=== PATIENT | male | born 1990 | race African-American/Black ===

== ENCOUNTER 2018-06-08 14:53 | Inpatient (IN) | payer MEDICAID ==
[~2018-06-08] VITALS: Ht 188 cm; Wt 81.6 kg
[2018-06-08 14:58] VITALS: BP 127/82
[2018-06-08] MEDS ORDERED: D5W IV ONE ×6 (15:00→21:15)
[2018-06-08] MEDS ORDERED: ACETADOTE IV ONE ×6 (15:00→21:15)
[2018-06-08] MEDS ORDERED: BUPROPION XL300 MG ORAL (15:14)
[2018-06-08] MEDS ORDERED: SEROQUEL200 MG ORAL (15:14)
--- NOTE | 2018-06-08 15:14 | Emergency Room Report ---
History of Present Illness General Chief Complaint: Behavioral Complaint Source: Patient Present Illness HPI Patient presents emergency department today complaining of abdominal pain. Patient has a history of depression. Patient does not take medications. Patient in the past has taken medications but for some reason stopped taking them. Patient was feeling depressed and wanted to kill himself. He took about 60 tablets of Tylenol Extra Strength at midnight last night. He states that he had one episode of vomiting. He came here complaining of abdominal pain he denies any fever chest pain shortness of breath. No other complaints are noted. Symptoms noted to be severe.No other modifying factors. No other associated signs and symptoms. No other complaints were noted. Allergies: Coded Allergies: No Known Allergies (Unverified , 06/08/18) Patient History Past Medical History: other - Depression, schizophrenia Past Surgical History: none Pertinent Family History: none Social History: Denies: smoking, alcohol use, drug use Reviewed Nursing Documentation: PMH: Agreed; PSxH: Agreed Nursing Documentation-PMH Past Medical History: No History, Except For History Of Psychiatric Problem: Yes - shizophrenia, depression Review of Systems All Other Systems: negative except mentioned in HPI Physical Exam Vital Signs Date Time Temp Pulse Resp B/P (MAP) Pulse Ox O2 Delivery O2 Flow Rate FiO2 06/08/18 14:48 98.2 90 18 127/82 100 Room Air 98.2 Sp02 EP Interpretation: reviewed, normal General Appearance: alert, mild distress Head: atraumatic Eyes: bilateral eye normal inspection ENT: normal ENT inspection, hearing grossly normal, normal voice Neck: normal inspection, full range of motion, supple, no bony tend Respiratory: normal inspection, lungs clear, normal breath sounds, no respiratory distress, no retraction, no wheezing Cardiovascular #1: regular rate, rhythm, no edema Gastrointestinal: normal inspection, normal bowel sounds, soft, no guarding, no hernia, tenderness - Diffusely Genitourinary: no CVA tenderness Musculoskeletal: normal inspection, back normal, normal range of motion Neurologic: normal inspection, alert, responsive, speech normal Psychiatric: depressed affect, anxious, other - Suicidal ideation Skin: normal inspection, normal color, no rash Medical Decision Making EKG Diagnostic Results Rate: normal Rhythm: NSR ST Segments: no acute changes Rhythm Strip Diag. Results EP Interpretation: yes Rate: 73 Rhythm: NSR, no PVC's, no ectopy Last Vital Signs Date Time Temp Pulse Resp B/P (MAP) Pulse Ox O2 Delivery O2 Flow Rate FiO2 06/08/18 14:48 98.2 90 18 127/82 100 Room Air 98.2 Tim Jung MD Jun 08, 2018 15:14
[2018-06-08 15:52] LABS: EOSINOPHILS % (AUTO) 4.1 % (0.0-3.0); HEMATOCRIT 43.9 % (42.0-52.0); HEMOGLOBIN 15.5 G/DL (14.2-18.0); LYMPHOCYTES % (AUTO) 37.5 % (20.0-45.0); MEAN CORPUSCULAR VOLUME 81 FL (80-99); MONOCYTES % (AUTO) 9.1 % (1.0-10.0); NEUTROPHILS % (AUTO) 46.4 % (45.0-75.0); PLATELET COUNT 300 K/UL (150-450); RED CELL DISTRIBUTION WIDTH 11.6 % (11.6-14.8); WHITE BLOOD COUNT 4.6 K/UL (4.8-10.8)
[2018-06-08 15:56] LABS: ANION GAP 6 mmol/L (5-15); BLOOD UREA NITROGEN 16 mg/dL (7-18); CALCIUM 9.2 MG/DL (8.5-10.1); CARBON DIOXIDE 30 MMOL/L (21-32); CHLORIDE 103 MMOL/L (98-107); CREATININE 1.3 MG/DL (0.55-1.30); POTASSIUM 3.6 MMOL/L (3.5-5.1); SODIUM 138 MMOL/L (136-145)
[2018-06-08 16:06] LABS: ALANINE AMINOTRANSFERASE 88 U/L (12-78); ALBUMIN 4.3 G/DL (3.4-5.0); ALBUMIN/GLOBULIN RATIO 1.3 (1.0-2.7); ALKALINE PHOSPHATASE 53 U/L (46-116); ASPARTATE AMINO TRANSFERASE 394 U/L (15-37)
[2018-06-08 17:00] VITALS: BP 132/80
[2018-06-08 17:02] LABS: INR 1.1 (0.9-1.1)
[2018-06-08 18:30] VITALS: BP 140/87
[2018-06-08 18:44] VITALS: BP 164/89
[2018-06-08] MEDS: D5 1/2NS 1,000 ML IV SCH (19:49)
[2018-06-08 20:00] VITALS: BP 135/90
[2018-06-08] MEDS ORDERED: LORazepam Inj 2mg/ml 1ml IV PRN (20:00)
[2018-06-08] MEDS ORDERED: Morphine Sulfate 2mg/ml Inj IVP PRN (20:00)
[2018-06-08] MEDS: Heparin 5000 units/ml inj SUBQ SCH (21:53)
[2018-06-09 00:50] VITALS: BP 135/90
[2018-06-09 04:00] VITALS: BP 133/88
[2018-06-09 07:34] LABS: BASOPHILS % (AUTO) 0.6 % (0.0-2.0); EOSINOPHILS % (AUTO) 0.2 % (0.0-3.0); HEMATOCRIT 29.7 % (42.0-52.0); HEMOGLOBIN 10.1 G/DL (14.2-18.0); LYMPHOCYTES % (AUTO) 19.7 % (20.0-45.0); MEAN CORPUSCULAR VOLUME 99 FL (80-99); NEUTROPHILS % (AUTO) 73.6 % (45.0-75.0); PLATELET COUNT 190 K/UL (150-450); RED BLOOD COUNT 2.99 M/UL (4.70-6.10); RED CELL DISTRIBUTION WIDTH 15.9 % (11.6-14.8); WHITE BLOOD COUNT 3.8 K/UL (4.8-10.8)
[2018-06-09 08:00] VITALS: BP 141/88
[2018-06-09 08:23] LABS: ALANINE AMINOTRANSFERASE 187 U/L (12-78); ALBUMIN 1.7 G/DL (3.4-5.0); ALBUMIN/GLOBULIN RATIO 0.6 (1.0-2.7); ALKALINE PHOSPHATASE 230 U/L (46-116); ANION GAP 9 mmol/L (5-15); ASPARTATE AMINO TRANSFERASE 46 U/L (15-37); BILIRUBIN,TOTAL 0.4 MG/DL (0.2-1.0); BLOOD UREA NITROGEN 24 mg/dL (7-18); CALCIUM 7.2 MG/DL (8.5-10.1); CARBON DIOXIDE 27 MMOL/L (21-32); CHLORIDE 112 MMOL/L (98-107); CREATININE 0.5 MG/DL (0.55-1.30); POTASSIUM 3.7 MMOL/L (3.5-5.1); SODIUM 148 MMOL/L (136-145)
[2018-06-09] MEDS: Heparin 5000 units/ml inj SUBQ SCH ×2 (08:48→20:34)
--- NOTE | 2018-06-09 10:34 | Consultation ---
History of Present Illness General Date patient seen: Jun 09, 2018 Chief Complaint: Behavioral Complaint Present Illness HPI 28 year old male with hx of schizoaffective disorder, depression presented to ER with CC of abdominal pain suicidal ideation. Patient was feeling depressed and wanted to kill himself. He took about 60 tablets of Tylenol Extra Strength at midnight last. He states that he had one episode of vomiting. He came here complaining of abdominal pain he denies any fever chest pain shortness of breath. No other complaints are noted. Poison control was contacted and IV Mucomyst was started in ER and pt was transferred to [facility] for further treatment. Allergies: Coded Allergies: No Known Allergies (Unverified , 06/08/18) Medication History Scheduled Bupropion Hcl* (Wellbutrin*), 150 MG ORAL DAILY, (Reported) Quetiapine Fumarate* (Seroquel*), 400 MG ORAL DAILY, (Reported) Patient History Healthcare decision maker Resuscitation status Full Code Advanced Directive on File Past Medical/Surgical History Past Medical/Surgical History: (1) Depression (2) Schizoaffective disorder Review of Systems All Other Systems: negative except mentioned in HPI Physical Exam General Appearance: WD/WN, no apparent distress Lines, tubes and drains: peripheral HEENT: normocephalic, atraumatic Neck: non-tender, normal alignment Respiratory/Chest: chest wall non-tender, lungs clear Breasts: no masses Cardiovascular/Chest: normal peripheral pulses Abdomen: normal bowel sounds, non tender Genitourinary/Rectal: normal genital exam Extremities: normal range of motion Last 24 Hour Vital Signs Date Time Temp Pulse Resp B/P (MAP) Pulse Ox O2 Delivery O2 Flow Rate FiO2 06/09/18 08:30 64 06/09/18 08:00 97.7 62 18 141/88 (105) 100 97.7 06/09/18 04:00 Room Air 06/09/18 04:00 97.7 64 18 133/88 (103) 99 97.7 06/09/18 04:00 64 06/09/18 00:50 97.5 63 20 135/90 (105) 97 97.5 06/09/18 00:00 Room Air 06/09/18 00:00 65 06/08/18 20:00 65 06/08/18 20:00 Room Air 06/08/18 20:00 97.5 63 20 135/90 (105) 97 97.5 06/08/18 18:53 98.0 89 15 140/87 100 Room Air 98.0 06/08/18 18:44 Room Air 06/08/18 18:44 98.8 63 20 164/89 (114) 97 98.8 06/08/18 18:30 98.0 89 15 140/87 100 Room Air 98.0 06/08/18 17:00 98.7 88 20 132/80 100 Room Air 98.7 06/08/18 14:58 98.2 18 127/82 100 Room Air 98.2 06/08/18 14:48 98.2 90 18 127/82 100 Room Air 98.2 Intake and Output 06/08/18 06/09/18 19:00 07:00 Intake Total 549.25 ml Balance 549.25 ml Intake IV Total 549.25 ml # Voids 1 1 Laboratory Tests Test 06/08/18 15:15 06/08/18 18:10 06/09/18 06:35 White Blood Count 4.6 K/UL (4.8-10.8) L 3.8 K/UL (4.8-10.8) L Red Blood Count 5.40 M/UL (4.70-6.10) 2.99 M/UL (4.70-6.10) L Hemoglobin 15.5 G/DL (14.2-18.0) 10.1 G/DL (14.2-18.0) #L Hematocrit 43.9 % (42.0-52.0) 29.7 % (42.0-52.0) #L Mean Corpuscular Volume 81 FL (80-99) 99 FL (80-99) # Mean Corpuscular Hemoglobin 28.6 PG (27.0-31.0) 33.7 PG (27.0-31.0) H Mean Corpuscular Hemoglobin Concent 35.2 G/DL (32.0-36.0) 33.9 G/DL (32.0-36.0) Red Cell Distribution Width 11.6 % (11.6-14.8) 15.9 % (11.6-14.8) H Platelet Count 300 K/UL (150-450) 190 K/UL (150-450) Mean Platelet Volume 5.7 FL (6.5-10.1) L 8.6 FL (6.5-10.1) Neutrophils (%) (Auto) 46.4 % (45.0-75.0) 73.6 % (45.0-75.0) Lymphocytes (%) (Auto) 37.5 % (20.0-45.0) 19.7 % (20.0-45.0) L Monocytes (%) (Auto) 9.1 % (1.0-10.0) 6.0 % (1.0-10.0) Eosinophils (%) (Auto) 4.1 % (0.0-3.0) H 0.2 % (0.0-3.0) Basophils (%) (Auto) 3.0 % (0.0-2.0) H 0.6 % (0.0-2.0) Prothrombin Time 11.9 SEC (9.30-11.50) H Prothromb Time International Ratio 1.1 (0.9-1.1) Activated Partial Thromboplast Time 30 SEC (23-33) Sodium Level 138 MMOL/L (136-145) 148 MMOL/L (136-145) #H Potassium Level 3.6 MMOL/L (3.5-5.1) 3.7 MMOL/L (3.5-5.1) Chloride Level 103 MMOL/L (98-107) 112 MMOL/L (98-107) H Carbon Dioxide Level 30 MMOL/L (21-32) 27 MMOL/L (21-32) Anion Gap 6 mmol/L (5-15) 9 mmol/L (5-15) Blood Urea Nitrogen 16 mg/dL (7-18) 24 mg/dL (7-18) H Creatinine 1.3 MG/DL (0.55-1.30) 0.5 MG/DL (0.55-1.30) #L Estimat Glomerular Filtration Rate > 60 mL/min (>60) > 60 mL/min (>60) Glucose Level 92 MG/DL (74-106) 109 MG/DL (74-106) H Calcium Level 9.2 MG/DL (8.5-10.1) 7.2 MG/DL (8.5-10.1) #L Total Bilirubin 1.0 MG/DL (0.2-1.0) 0.4 MG/DL (0.2-1.0) Aspartate Amino Transf (AST/SGOT) 394 U/L (15-37) H 46 U/L (15-37) H Alanine Aminotransferase (ALT/SGPT) 88 U/L (12-78) H 187 U/L (12-78) H Alkaline Phosphatase 53 U/L (46-116) 230 U/L (46-116) H Total Protein 7.7 G/DL (6.4-8.2) 4.7 G/DL (6.4-8.2) #L Albumin 4.3 G/DL (3.4-5.0) 1.7 G/DL (3.4-5.0) L Globulin 3.4 g/dL 3.0 g/dL Albumin/Globulin Ratio 1.3 (1.0-2.7) 0.6 (1.0-2.7) L Salicylates Level 1.0 ug/mL (2.8-20) L Acetaminophen Level 33 MCG/ML (10-30) H Pending Serum Alcohol < 3 mg/dL Urine Opiates Screen Negative (NEGATIVE) Urine Barbiturates Screen Negative (NEGATIVE) Phencyclidine (PCP) Screen Negative (NEGATIVE) Urine Amphetamines Screen Positive (NEGATIVE) H Urine Benzodiazepines Screen Negative (NEGATIVE) Urine Cocaine Screen Positive (NEGATIVE) H Urine Marijuana (THC) Screen Positive (NEGATIVE) H Height (Feet): 6 Height (Inches): 2.00 Weight (Pounds): 180 Medications Current Medications Medications (Trade) Dose Ordered Sig/Pierre Route PRN Reason Start Time Stop Time Status Last Admin Dose Admin Acetylcysteine 8000 mg/Dextrose 1,040 ml @ 65 mls/hr ONCE ONCE IV 06/08/18 21:15 06/09/18 13:14 06/08/18 21:33 Dextrose (Dextrose 50%) 25 ml Q30M PRN IV Hypoglycemia 06/08/18 20:00 07/08/18 19:59 Dextrose (Dextrose 50%) 50 ml Q30M PRN IV Hypoglycemia 06/08/18 20:00 07/08/18 19:59 Dextrose/Sodium Chloride 1,000 ml @ 50 mls/hr Q20H IV 06/08/18 19:49 07/08/18 19:48 Heparin Sodium (Porcine) (Heparin 5000 units/ml) 5,000 units EVERY 12 HOURS SUBQ 06/08/18 21:00 07/08/18 20:59 06/09/18 08:48 Lorazepam (Ativan 2mg/ml 1ml) 0.5 mg Q4H PRN IV For Anxiety 06/08/18 20:00 06/15/18 19:59 Morphine Sulfate (Morphine Sulfate) 1 mg Q4H PRN IVP For Pain 06/08/18 20:00 06/15/18 19:59 Ondansetron HCl (Zofran) 4 mg Q6H PRN IVP Nausea & Vomiting 06/08/18 20:00 07/08/18 19:59 Assessment/Plan Problem List: (1) Overdose by acetaminophen ICD Codes: T39.1X1A - Poisoning by 4-Aminophenol derivatives, accidental ( unintentional), initial encounter SNOMED: 054902091 (2) Schizoaffective disorder ICD Codes: F25.9 - Schizoaffective disorder, unspecified SNOMED: 65452068 (3) Depression ICD Codes: F32.9 - Major depressive disorder, single episode, unspecified SNOMED: 89590665 Assessment/Plan iv fluids psych evaluation check Tylenol level this morning GI f/u dvt prophylaxis Cristel Capone MD Jun 09, 2018 10:34
--- NOTE | 2018-06-09 10:49 | GI Initial Consult Note ---
History of Present Illness General Date patient seen: Jun 09, 2018 Time patient seen: 10:39 Reason for Hospitalization: Behavioral Complaint Referring physician: DANA MURILLO Reason for Consultation: DRUG OVERDOSE Present Illness HPI Patient presents emergency department today complaining of abdominal pain. Patient has a history of depression. Patient does not take medications. Patient in the past has taken medications but for some reason stopped taking them. Patient was feeling depressed and wanted to kill himself. He took about 60 tablets of Tylenol Extra Strength at midnight last night. He states that he had one episode of vomiting. He came here complaining of abdominal pain he denies any fever chest pain shortness of breath. No other complaints are noted. Symptoms noted to be severe.No other modifying factors. No other associated signs and symptoms. No other complaints were noted. GI consulted for Tylenol overdose, possible acute liver damage. Pt seen, awake A&Ox4 NAD appears anxious with no active s/sx of N/V/D. Denies any abdominal pain. Labs reviewed; noted with hypernatremia, transaminitis, elevated acetaminophen levels. Utox positive for cocaine, marijuana and amphetamines. No history of endoscopy / colonoscopy. Home Meds Reported Medications Quetiapine Fumarate* (SEROQUEL*) 200 Mg Tablet, 400 MG ORAL DAILY, TAB 06/08/18 Bupropion Hcl* (WELLBUTRIN*) 300 Mg Tab.er.24h, 150 MG ORAL DAILY, #30 TAB 0 Refills 06/08/18 Med list reviewed/reconciled: Yes Allergies: Coded Allergies: No Known Allergies (Unverified , 06/08/18) Patient History History Provided By: Patient Past Medical History: none PMH Narrative Past Medical History: other - Depression, schizophrenia Past Surgical History: none Pertinent Family History: none Social History: Denies: smoking, alcohol use, drug use Reviewed Nursing Documentation: PMH: Agreed; PSxH: Agreed Nursing Documentation-PMH Past Medical History: No History, Except For History Of Psychiatric Problem: Yes - schizophrenia, depression Social History: Reports: drug use Review of Systems All Other Systems: negative except mentioned in HPI Physical Exam Vital Signs Date Time Temp Pulse Resp B/P (MAP) Pulse Ox O2 Delivery O2 Flow Rate FiO2 06/08/18 14:48 98.2 90 18 127/82 100 Room Air 98.2 Sp02 EP Interpretation: reviewed, normal Labs Laboratory Tests Test 06/08/18 15:15 06/08/18 18:10 06/09/18 06:35 White Blood Count 4.6 K/UL (4.8-10.8) L 3.8 K/UL (4.8-10.8) L Red Blood Count 5.40 M/UL (4.70-6.10) 2.99 M/UL (4.70-6.10) L Hemoglobin 15.5 G/DL (14.2-18.0) 10.1 G/DL (14.2-18.0) #L Hematocrit 43.9 % (42.0-52.0) 29.7 % (42.0-52.0) #L Mean Corpuscular Volume 81 FL (80-99) 99 FL (80-99) # Mean Corpuscular Hemoglobin 28.6 PG (27.0-31.0) 33.7 PG (27.0-31.0) H Mean Corpuscular Hemoglobin Concent 35.2 G/DL (32.0-36.0) 33.9 G/DL (32.0-36.0) Red Cell Distribution Width 11.6 % (11.6-14.8) 15.9 % (11.6-14.8) H Platelet Count 300 K/UL (150-450) 190 K/UL (150-450) Mean Platelet Volume 5.7 FL (6.5-10.1) L 8.6 FL (6.5-10.1) Neutrophils (%) (Auto) 46.4 % (45.0-75.0) 73.6 % (45.0-75.0) Lymphocytes (%) (Auto) 37.5 % (20.0-45.0) 19.7 % (20.0-45.0) L Monocytes (%) (Auto) 9.1 % (1.0-10.0) 6.0 % (1.0-10.0) Eosinophils (%) (Auto) 4.1 % (0.0-3.0) H 0.2 % (0.0-3.0) Basophils (%) (Auto) 3.0 % (0.0-2.0) H 0.6 % (0.0-2.0) Prothrombin Time 11.9 SEC (9.30-11.50) H Prothromb Time International Ratio 1.1 (0.9-1.1) Activated Partial Thromboplast Time 30 SEC (23-33) Sodium Level 138 MMOL/L (136-145) 148 MMOL/L (136-145) #H Potassium Level 3.6 MMOL/L (3.5-5.1) 3.7 MMOL/L (3.5-5.1) Chloride Level 103 MMOL/L (98-107) 112 MMOL/L (98-107) H Carbon Dioxide Level 30 MMOL/L (21-32) 27 MMOL/L (21-32) Anion Gap 6 mmol/L (5-15) 9 mmol/L (5-15) Blood Urea Nitrogen 16 mg/dL (7-18) 24 mg/dL (7-18) H Creatinine 1.3 MG/DL (0.55-1.30) 0.5 MG/DL (0.55-1.30) #L Estimat Glomerular Filtration Rate > 60 mL/min (>60) > 60 mL/min (>60) Glucose Level 92 MG/DL (74-106) 109 MG/DL (74-106) H Calcium Level 9.2 MG/DL (8.5-10.1) 7.2 MG/DL (8.5-10.1) #L Total Bilirubin 1.0 MG/DL (0.2-1.0) 0.4 MG/DL (0.2-1.0) Aspartate Amino Transf (AST/SGOT) 394 U/L (15-37) H 46 U/L (15-37) H Alanine Aminotransferase (ALT/SGPT) 88 U/L (12-78) H 187 U/L (12-78) H Alkaline Phosphatase 53 U/L (46-116) 230 U/L (46-116) H Total Protein 7.7 G/DL (6.4-8.2) 4.7 G/DL (6.4-8.2) #L Albumin 4.3 G/DL (3.4-5.0) 1.7 G/DL (3.4-5.0) L Globulin 3.4 g/dL 3.0 g/dL Albumin/Globulin Ratio 1.3 (1.0-2.7) 0.6 (1.0-2.7) L Salicylates Level 1.0 ug/mL (2.8-20) L Acetaminophen Level 33 MCG/ML (10-30) H 5 MCG/ML (10-30) L Serum Alcohol < 3 mg/dL Urine Opiates Screen Negative (NEGATIVE) Urine Barbiturates Screen Negative (NEGATIVE) Phencyclidine (PCP) Screen Negative (NEGATIVE) Urine Amphetamines Screen Positive (NEGATIVE) H Urine Benzodiazepines Screen Negative (NEGATIVE) Urine Cocaine Screen Positive (NEGATIVE) H Urine Marijuana (THC) Screen Positive (NEGATIVE) H General Appearance: well appearing, no apparent distress, alert Head: normocephalic EENT: PERRL/EOMI, normal ENT inspection Neck: supple Respiratory: normal breath sounds, no respiratory distress Cardiovascular: normal rate Gastrointestinal: normal inspection, non tender, soft, normal bowel sounds, non -distended Rectal: deferred Genitourinary: deferred Musculoskeletal: normal inspection, back normal Neurologic: normal inspection, alert, oriented x3, responsive Psychiatric: normal inspection, judgement/insight normal, memory normal Skin: normal inspection, normal color, no rash, warm/dry, palpation normal, well hydrated Lymphatic: normal inspection, no adenopathy Current Medications Current Medications Medications (Trade) Dose Ordered Sig/Pierre Route PRN Reason Start Time Stop Time Status Last Admin Dose Admin Acetylcysteine 8000 mg/Dextrose 1,040 ml @ 65 mls/hr ONCE ONCE IV 06/08/18 21:15 06/09/18 13:14 06/08/18 21:33 Dextrose (Dextrose 50%) 25 ml Q30M PRN IV Hypoglycemia 06/08/18 20:00 07/08/18 19:59 Dextrose (Dextrose 50%) 50 ml Q30M PRN IV Hypoglycemia 06/08/18 20:00 07/08/18 19:59 Dextrose/Sodium Chloride 1,000 ml @ 50 mls/hr Q20H IV 06/08/18 19:49 07/08/18 19:48 Heparin Sodium (Porcine) (Heparin 5000 units/ml) 5,000 units EVERY 12 HOURS SUBQ 06/08/18 21:00 07/08/18 20:59 06/09/18 08:48 Lorazepam (Ativan 2mg/ml 1ml) 0.5 mg Q4H PRN IV For Anxiety 06/08/18 20:00 06/15/18 19:59 Morphine Sulfate (Morphine Sulfate) 1 mg Q4H PRN IVP For Pain 06/08/18 20:00 06/15/18 19:59 Ondansetron HCl (Zofran) 4 mg Q6H PRN IVP Nausea & Vomiting 06/08/18 20:00 07/08/18 19:59 GI: Plan Problems: (1) Drug abuse (2) Transaminitis (3) Overdose by acetaminophen (4) Schizoaffective disorder (5) Depression Plan utox positive for cocaine, amphetamines, marijuana mild elevated acetaminophen levels >> now normal transaminitis Mucomyst given symptomatic treatment advance to regular diet Ativan prn Zofran prn electrolyte correction avoid drug use fu labs, trend LFTs Discussed with Dr. Horner. Thank you for this patient referral, we will follow. The patient was seen and examined at bedside and all new and available data was reviewed in the patients chart. I agree with the above findings, impression and plan. (Patient seen earlier today. Signature stamp does not reflect patient encounter time.). - MD Ericka HaleyBenson HospitalJuan [employer]QUID YEAST SUPERVISOR Jun 09, 2018 10:49
[2018-06-09 12:13] VITALS: BP 146/86
[2018-06-09] MEDS: D5 1/2NS 1,000 ML IV SCH ×2 (14:34→23:15)
[2018-06-09 15:38] LABS: ALANINE AMINOTRANSFERASE 267 U/L (12-78); ALBUMIN 3.5 G/DL (3.4-5.0); ALKALINE PHOSPHATASE 49 U/L (46-116); ASPARTATE AMINO TRANSFERASE 1166 U/L (15-37); BILIRUBIN,DIRECT 0.3 MG/DL (0.0-0.3); BILIRUBIN,TOTAL 1.6 MG/DL (0.2-1.0)
[2018-06-09 16:00] VITALS: BP 130/72
[2018-06-09 20:00] VITALS: BP 125/75
--- NOTE | 2018-06-09 20:37 | History & Physical ---
History and Physical History & Physicial Dictated for Int Med-Dr Boone no. [id number]. Sid Phan MD Jun 09, 2018 20:37
[2018-06-09] MEDS ORDERED: ACETADOTE IV SCH (21:00)
[2018-06-09] MEDS ORDERED: D5W IV SCH (21:00)
[2018-06-09] MEDS ORDERED: ACETADOTE IV ONE (23:15)
[2018-06-09] MEDS ORDERED: D5W IV ONE (23:15)
--- NOTE | 2018-06-09 23:20 | Consultation ---
History of Present Illness General Date patient seen: Jun 09, 2018 Chief Complaint: Behavioral Complaint Referring physician: DANA MURILLO Reason for Consultation: DRUG OVERDOSE Present Illness HPI 28 year old male with hx of schizoaffective disorder, depression presented to er. the pt stated that he took a hand full of tylenol he stated that he was still depressed. the pt stated that he stopped his meds. the pt stated that he feels better no psychotic or manic sxs Allergies: Coded Allergies: No Known Allergies (Unverified , 06/08/18) Medication History Scheduled Bupropion Hcl* (Wellbutrin*), 150 MG ORAL DAILY, (Reported) Quetiapine Fumarate* (Seroquel*), 400 MG ORAL DAILY, (Reported) Patient History Limited by: medical condition History Provided By: Patient, Medical Record, PMD Healthcare decision maker Resuscitation status Full Code Advanced Directive on File Past Medical/Surgical History Past Medical/Surgical History: (1) Depression (2) Schizoaffective disorder (3) Overdose by acetaminophen (4) Drug abuse (5) Transaminitis Review of Systems Psychiatric: Reports: anxiety, depressed feelings, emotional problems Physical Exam General Appearance: no apparent distress, alert Neurologic: oriented x 3, responsive, depressed affect Last 24 Hour Vital Signs Date Time Temp Pulse Resp B/P (MAP) Pulse Ox O2 Delivery O2 Flow Rate FiO2 06/09/18 21:00 Room Air 06/09/18 20:00 90 06/09/18 20:00 97.9 76 20 125/75 (92) 99 97.9 06/09/18 16:23 73 06/09/18 16:00 Room Air 06/09/18 16:00 98.4 70 20 130/72 (91) 100 98.4 06/09/18 13:27 66 06/09/18 12:13 98.1 65 18 146/86 (106) 100 98.1 06/09/18 12:00 Room Air 06/09/18 08:30 64 06/09/18 08:00 Room Air 06/09/18 08:00 97.7 62 18 141/88 (105) 100 97.7 06/09/18 04:00 Room Air 06/09/18 04:00 97.7 64 18 133/88 (103) 99 97.7 06/09/18 04:00 64 06/09/18 00:50 97.5 63 20 135/90 (105) 97 97.5 06/09/18 00:00 Room Air 06/09/18 00:00 65 Intake and Output 06/08/18 06/09/18 19:00 07:00 Intake Total 614.25 ml Balance 614.25 ml Intake IV Total 614.25 ml # Voids 1 1 Laboratory Tests Test 06/09/18 06:35 06/09/18 14:30 White Blood Count 3.8 K/UL (4.8-10.8) L Red Blood Count 2.99 M/UL (4.70-6.10) L Hemoglobin 10.1 G/DL (14.2-18.0) #L Hematocrit 29.7 % (42.0-52.0) #L Mean Corpuscular Volume 99 FL (80-99) # Mean Corpuscular Hemoglobin 33.7 PG (27.0-31.0) H Mean Corpuscular Hemoglobin Concent 33.9 G/DL (32.0-36.0) Red Cell Distribution Width 15.9 % (11.6-14.8) H Platelet Count 190 K/UL (150-450) Mean Platelet Volume 8.6 FL (6.5-10.1) Neutrophils (%) (Auto) 73.6 % (45.0-75.0) Lymphocytes (%) (Auto) 19.7 % (20.0-45.0) L Monocytes (%) (Auto) 6.0 % (1.0-10.0) Eosinophils (%) (Auto) 0.2 % (0.0-3.0) Basophils (%) (Auto) 0.6 % (0.0-2.0) Sodium Level 148 MMOL/L (136-145) #H Potassium Level 3.7 MMOL/L (3.5-5.1) Chloride Level 112 MMOL/L (98-107) H Carbon Dioxide Level 27 MMOL/L (21-32) Anion Gap 9 mmol/L (5-15) Blood Urea Nitrogen 24 mg/dL (7-18) H Creatinine 0.5 MG/DL (0.55-1.30) #L Estimat Glomerular Filtration Rate > 60 mL/min (>60) Glucose Level 109 MG/DL (74-106) H Calcium Level 7.2 MG/DL (8.5-10.1) #L Total Bilirubin 0.4 MG/DL (0.2-1.0) 1.6 MG/DL (0.2-1.0) H Aspartate Amino Transf (AST/SGOT) 46 U/L (15-37) H 1166 U/L (15-37) H Alanine Aminotransferase (ALT/SGPT) 187 U/L (12-78) H 267 U/L (12-78) H Alkaline Phosphatase 230 U/L (46-116) H 49 U/L (46-116) Total Protein 4.7 G/DL (6.4-8.2) #L 6.7 G/DL (6.4-8.2) # Albumin 1.7 G/DL (3.4-5.0) L 3.5 G/DL (3.4-5.0) Globulin 3.0 g/dL Albumin/Globulin Ratio 0.6 (1.0-2.7) L Acetaminophen Level 5 MCG/ML (10-30) L < 2 MCG/ML (10-30) L Direct Bilirubin 0.3 MG/DL (0.0-0.3) Height (Feet): 6 Height (Inches): 2.00 Weight (Pounds): 180 Medications Current Medications Medications (Trade) Dose Ordered Sig/Pierre Route PRN Reason Start Time Stop Time Status Last Admin Dose Admin Acetylcysteine 8000 mg/Dextrose 1,040 ml @ 65 mls/hr ONCE ONCE IV 06/09/18 23:15 06/10/18 15:14 UNV Dextrose (Dextrose 50%) 25 ml Q30M PRN IV Hypoglycemia 06/09/18 23:30 07/08/18 19:59 UNV Dextrose (Dextrose 50%) 50 ml Q30M PRN IV Hypoglycemia 06/09/18 23:30 07/08/18 19:59 UNV Dextrose/Sodium Chloride 1,000 ml @ 50 mls/hr Q20H IV 06/09/18 23:15 07/08/18 19:48 UNV Heparin Sodium (Porcine) (Heparin 5000 units/ml) 5,000 units EVERY 12 HOURS SUBQ 06/10/18 09:00 07/08/18 20:59 UNV Lorazepam (Ativan 2mg/ml 1ml) 0.5 mg Q4H PRN IV For Anxiety 06/10/18 00:00 06/15/18 19:59 UNV Morphine Sulfate (Morphine Sulfate) 1 mg Q4H PRN IVP For Pain 06/10/18 00:00 06/15/18 19:59 UNV Ondansetron HCl (Zofran) 4 mg Q6H PRN IVP Nausea & Vomiting 06/10/18 02:00 07/08/18 19:59 UNV Assessment/Plan Status: stable Assessment/Plan mdd pet team eval for dts resume seroquel however lower dose Bijal Ortiz MD Jun 09, 2018 23:19
[2018-06-10] VITALS: BP 136/72
[2018-06-10] MEDS ORDERED: LORazepam Inj 2mg/ml 1ml IV PRN
[2018-06-10] MEDS ORDERED: Morphine Sulfate 2mg/ml Inj IVP PRN
--- NOTE | 2018-06-10 00:45 | History and Physical Report ---
DATE OF ADMISSION: 06/08/2018 CHIEF COMPLAINT: The patient is a 28-year-old male who presents with chief complaint of abdominal pain. HISTORY OF PRESENT ILLNESS: The patient has a history of depression. The patient presented to [place] emergency room complaining of abdominal pain. Upon further investigation, it was found out the patient had stopped taking his antidepressant medication. The patient had taken approximately 60 tablets of Extra Strength Tylenol as a suicide gesture. The patient was admitted for abdominal pain and intentional Tylenol overdose. REVIEW OF SYSTEMS: CONSTITUTIONAL: The patient denies weight loss or weight gain. The patient denies fevers or chills. HEENT: The patient denies ear or throat pain. The patient denies headache. CARDIOVASCULAR: The patient denies palpitations or chest pain. CHEST: The patient denies wheeze or shortness of breath. ABDOMINAL: The patient complains of epigastric pain. The patient denies nausea, vomiting, diarrhea, or constipation. GENITOURINARY: The patient denies dysuria or increased frequency of urination. NEUROMUSCULAR: The patient denies seizures or generalized weakness. PAST MEDICAL HISTORY: Significant for number: 1. Depression. 2. Schizophrenia. PAST SURGICAL HISTORY: The patient denies. CURRENT MEDICATIONS: The patient denies. ALLERGIES: No known drug allergies. SOCIAL HISTORY: The patient is single and lives alone. The patient denies tobacco or alcohol use. PHYSICAL EXAMINATION: VITAL SIGNS: Temperature 97.5, respirations 20, pulse 65, blood pressure 135/90. GENERAL: The patient is well-developed and well-nourished male, in no apparent distress. HEENT: Eyes, pupils are equal and responsive to light and accommodation. Extraocular movements are intact. NECK: Supple without lymphadenopathy. CHEST: Lungs are clear to auscultation bilaterally without wheezes or rales. CARDIOVASCULAR: Regular rhythm and rate. S1 and S2 are normal without murmurs, rubs, or gallops. ABDOMEN: Soft, nontender, and nondistended. Positive bowel sounds. No evidence of hepatosplenomegaly. Currently, no rebound or guarding noted. EXTREMITIES: Negative for clubbing, cyanosis, or edema. RECTAL/GENITAL: Refused. NEUROLOGIC: Cranial nerves II to XII are grossly intact without focal deficits. Motor strength is 5/5 bilaterally. Deep tendon reflexes are 2+ plantar. LABORATORY STUDIES: WBC 4.6, hemoglobin 15.5, hematocrit 43.9, platelets 300,000. Sodium 138, potassium 3.6, chloride 103, CO2 30, BUN 16, and creatinine 1.3, glucose 92. AST elevated at 394. ALT elevated at 88, alkaline phosphatase normal at 53. Acetaminophen level was 33. Urine drug screen was positive for amphetamines, cocaine, and marijuana. ASSESSMENT: This is a 28-year-old male. 1. Intentional overdose. 2. Suicide attempt. 3. Elevated liver function tests. TREATMENT: 1. Elevated liver function tests this is probably secondary to acetaminophen overdose as above. A Gastroenterology consultation obtained with Dr. Bhavik Horner. The patient has been started on acetylcysteine. 2. Suicide attempt (intentional) a psychiatric consultation obtained with Dr. Ortiz. Sid Phan M.D. DR: Laura JOB#: [id number] CC:
[2018-06-10 04:00] VITALS: BP 125/80
[2018-06-10 08:00] VITALS: BP 131/74
[2018-06-10 09:03] LABS: BASOPHILS % (AUTO) 1.1 % (0.0-2.0); EOSINOPHILS % (AUTO) 11.4 % (0.0-3.0); HEMATOCRIT 45.4 % (42.0-52.0); HEMOGLOBIN 15.1 G/DL (14.2-18.0); MEAN CORPUSCULAR VOLUME 81 FL (80-99); MONOCYTES % (AUTO) 10.1 % (1.0-10.0); NEUTROPHILS % (AUTO) 40.4 % (45.0-75.0); PLATELET COUNT 272 K/UL (150-450); RED BLOOD COUNT 5.63 M/UL (4.70-6.10); RED CELL DISTRIBUTION WIDTH 11.6 % (11.6-14.8); WHITE BLOOD COUNT 4.1 K/UL (4.8-10.8)
[2018-06-10 09:20] LABS: INR 1.1 (0.9-1.1)
[2018-06-10] MEDS: Heparin 5000 units/ml inj SUBQ SCH ×2 (09:24→20:55)
[2018-06-10 09:36] LABS: ALANINE AMINOTRANSFERASE 349 U/L (12-78); ALBUMIN 3.1 G/DL (3.4-5.0); ALKALINE PHOSPHATASE 51 U/L (46-116); ANION GAP 6 mmol/L (5-15); ASPARTATE AMINO TRANSFERASE 1121 U/L (15-37); BILIRUBIN,TOTAL 0.8 MG/DL (0.2-1.0); BLOOD UREA NITROGEN 8 mg/dL (7-18); CALCIUM 8.5 MG/DL (8.5-10.1); CARBON DIOXIDE 27 MMOL/L (21-32); CHLORIDE 103 MMOL/L (98-107); CREATININE 1.1 MG/DL (0.55-1.30); PHOSPHORUS 2.7 MG/DL (2.5-4.9); SODIUM 136 MMOL/L (136-145)
[2018-06-10 12:00] VITALS: BP 156/94
--- NOTE | 2018-06-10 12:07 | GI Progress Note ---
Assessment/Plan Problems: (1) Transaminitis ICD Codes: R74.0 - Nonspecific elevation of levels of transaminase and lactic acid dehydrogenase [LDH] SNOMED: 750666059, 693688979 (2) Drug abuse ICD Codes: F19.10 - Other psychoactive substance abuse, uncomplicated SNOMED: 75152185 (3) Overdose by acetaminophen ICD Codes: T39.1X1A - Poisoning by 4-Aminophenol derivatives, accidental ( unintentional), initial encounter SNOMED: 741572158 (4) Schizoaffective disorder ICD Codes: F25.9 - Schizoaffective disorder, unspecified SNOMED: 19551319 (5) Depression ICD Codes: F32.9 - Major depressive disorder, single episode, unspecified SNOMED: 38217889 Status: stable Status Narrative Discussed with Dr. Horner. Assessment/Plan utox positive for cocaine, amphetamines, marijuana mild elevated acetaminophen levels >> now normal transaminitis >> increasing Mucomyst given symptomatic treatment advance to regular diet Ativan prn Zofran prn electrolyte correction avoid drug use fu labs, trend LFTs The patient was seen and examined at bedside and all new and available data was reviewed in the patients chart. I agree with the above findings, impression and plan. (Patient seen earlier today. Signature stamp does not reflect patient encounter time.). - Bhavik Horner MD Subjective Gastrointestinal/Abdominal: Reports: no symptoms Objective Last 24 Hour Vital Signs Date Time Temp Pulse Resp B/P (MAP) Pulse Ox O2 Delivery O2 Flow Rate FiO2 06/10/18 08:00 97.8 64 18 131/74 (93) 99 97.8 64 06/10/18 04:00 98.2 62 18 125/80 (95) 98 98.2 06/10/18 00:00 98.0 67 18 136/72 (93) 99 98.0 06/09/18 21:00 Room Air 06/09/18 20:00 90 06/09/18 20:00 97.9 76 20 125/75 (92) 99 97.9 06/09/18 16:23 73 06/09/18 16:00 Room Air 06/09/18 16:00 98.4 70 20 130/72 (91) 100 98.4 06/09/18 13:27 66 06/09/18 12:13 98.1 65 18 146/86 (106) 100 98.1 Intake and Output 06/09/18 06/10/18 19:00 07:00 Intake Total 705 ml 1209.7 ml Output Total 500 ml Balance 205 ml 1209.7 ml IV Total 705 ml 1209.7 ml Output Urine Total 500 ml # Voids 1 Laboratory Tests Test 06/09/18 14:30 06/10/18 08:25 Total Bilirubin 1.6 MG/DL (0.2-1.0) H 0.8 MG/DL (0.2-1.0) Direct Bilirubin 0.3 MG/DL (0.0-0.3) Aspartate Amino Transf (AST/SGOT) 1166 U/L (15-37) H 1121 U/L (15-37) H Alanine Aminotransferase (ALT/SGPT) 267 U/L (12-78) H 349 U/L (12-78) H Alkaline Phosphatase 49 U/L (46-116) 51 U/L (46-116) Total Protein 6.7 G/DL (6.4-8.2) # 6.3 G/DL (6.4-8.2) L Albumin 3.5 G/DL (3.4-5.0) 3.1 G/DL (3.4-5.0) L Acetaminophen Level < 2 MCG/ML (10-30) L White Blood Count 4.1 K/UL (4.8-10.8) L Red Blood Count 5.63 M/UL (4.70-6.10) Hemoglobin 15.1 G/DL (14.2-18.0) # Hematocrit 45.4 % (42.0-52.0) # Mean Corpuscular Volume 81 FL (80-99) # Mean Corpuscular Hemoglobin 26.9 PG (27.0-31.0) L Mean Corpuscular Hemoglobin Concent 33.4 G/DL (32.0-36.0) Red Cell Distribution Width 11.6 % (11.6-14.8) Platelet Count 272 K/UL (150-450) Mean Platelet Volume 6.4 FL (6.5-10.1) L Neutrophils (%) (Auto) 40.4 % (45.0-75.0) L Lymphocytes (%) (Auto) 37.0 % (20.0-45.0) Monocytes (%) (Auto) 10.1 % (1.0-10.0) H Eosinophils (%) (Auto) 11.4 % (0.0-3.0) H Basophils (%) (Auto) 1.1 % (0.0-2.0) Prothrombin Time 12.0 SEC (9.30-11.50) H Prothromb Time International Ratio 1.1 (0.9-1.1) Activated Partial Thromboplast Time 28 SEC (23-33) Sodium Level 136 MMOL/L (136-145) Potassium Level 4.0 MMOL/L (3.5-5.1) Chloride Level 103 MMOL/L (98-107) Carbon Dioxide Level 27 MMOL/L (21-32) Anion Gap 6 mmol/L (5-15) Blood Urea Nitrogen 8 mg/dL (7-18) Creatinine 1.1 MG/DL (0.55-1.30) # Estimat Glomerular Filtration Rate > 60 mL/min (>60) Glucose Level 110 MG/DL (74-106) H Calcium Level 8.5 MG/DL (8.5-10.1) Phosphorus Level 2.7 MG/DL (2.5-4.9) Magnesium Level 1.4 MG/DL (1.8-2.4) L Globulin 3.2 g/dL Albumin/Globulin Ratio 1.0 (1.0-2.7) Height (Feet): 6 Height (Inches): 2.00 Weight (Pounds): 180 General Appearance: WD/WN, no apparent distress, alert Cardiovascular: normal rate Respiratory/Chest: normal breath sounds, no respiratory distress Abdominal Exam: normal bowel sounds, non tender, soft Extremities: normal range of motion, non-tender Savannah Barnett NP Jun 10, 2018 12:07
--- NOTE | 2018-06-10 12:16 | Pulmonology Progress Note ---
Assessment/Plan Problems: (1) Overdose by acetaminophen (2) Schizoaffective disorder (3) Depression Assessment/Plan PET team was called f/u liver enzymes GI and poison control following Subjective ROS Limited/Unobtainable: No Constitutional: Reports: no symptoms HEENT: Repors: no symptoms Allergies: Coded Allergies: No Known Allergies (Unverified , 06/08/18) Objective Last 24 Hour Vital Signs Date Time Temp Pulse Resp B/P (MAP) Pulse Ox O2 Delivery O2 Flow Rate FiO2 06/10/18 08:00 97.8 64 18 131/74 (93) 99 97.8 64 06/10/18 04:00 98.2 62 18 125/80 (95) 98 98.2 06/10/18 00:00 98.0 67 18 136/72 (93) 99 98.0 06/09/18 21:00 Room Air 06/09/18 20:00 90 06/09/18 20:00 97.9 76 20 125/75 (92) 99 97.9 06/09/18 16:23 73 06/09/18 16:00 Room Air 06/09/18 16:00 98.4 70 20 130/72 (91) 100 98.4 06/09/18 13:27 66 Intake and Output 06/09/18 06/10/18 19:00 07:00 Intake Total 705 ml 1209.7 ml Output Total 500 ml Balance 205 ml 1209.7 ml IV Total 705 ml 1209.7 ml Output Urine Total 500 ml # Voids 1 General Appearance: WD/WN HEENT: normocephalic Respiratory/Chest: chest wall non-tender, lungs clear Cardiovascular: normal peripheral pulses, regular rhythm Abdomen: normal bowel sounds, soft, non tender Genitourinary: normal external genitalia Extremities: no clubbing Skin: no rash Laboratory Tests 06/09/18 14:30: Total Bilirubin 1.6H, Direct Bilirubin 0.3, Aspartate Amino Transf (AST/SGOT) 1166H, Alanine Aminotransferase (ALT/SGPT) 267H, Alkaline Phosphatase 49, Total Protein 6.7#, Albumin 3.5, Acetaminophen Level < 2L 06/10/18 08:25: Total Bilirubin 0.8, Aspartate Amino Transf (AST/SGOT) 1121H, Alanine Aminotransferase (ALT/SGPT) 349H, Alkaline Phosphatase 51, Total Protein 6.3L, Albumin 3.1L, White Blood Count 4.1L, Red Blood Count 5.63, Hemoglobin 15.1#, Hematocrit 45.4#, Mean Corpuscular Volume 81#, Mean Corpuscular Hemoglobin 26.9L , Mean Corpuscular Hemoglobin Concent 33.4, Red Cell Distribution Width 11.6, Platelet Count 272, Mean Platelet Volume 6.4L, Neutrophils (%) (Auto) 40.4L, Lymphocytes (%) (Auto) 37.0, Monocytes (%) (Auto) 10.1H, Eosinophils (%) (Auto) 11.4H, Basophils (%) (Auto) 1.1, Prothrombin Time 12.0H, Prothromb Time International Ratio 1.1, Activated Partial Thromboplast Time 28, Sodium Level 136, Potassium Level 4.0, Chloride Level 103, Carbon Dioxide Level 27, Anion Gap 6, Blood Urea Nitrogen 8, Creatinine 1.1#, Estimat Glomerular Filtration Rate > 60, Glucose Level 110H, Calcium Level 8.5, Phosphorus Level 2.7, Magnesium Level 1.4L, Globulin 3.2, Albumin/Globulin Ratio 1.0 Current Medications Medications (Trade) Dose Ordered Sig/Pierre Route PRN Reason Start Time Stop Time Status Last Admin Dose Admin Acetylcysteine 8000 mg/Dextrose 1,040 ml @ 65 mls/hr ONCE ONCE IV 06/09/18 23:15 06/10/18 15:14 06/10/18 00:22 Dextrose (Dextrose 50%) 25 ml Q30M PRN IV Hypoglycemia 06/09/18 23:30 07/08/18 19:59 Dextrose (Dextrose 50%) 50 ml Q30M PRN IV Hypoglycemia 06/09/18 23:30 07/08/18 19:59 Dextrose/Sodium Chloride 1,000 ml @ 50 mls/hr Q20H IV 06/09/18 23:15 07/08/18 19:48 Heparin Sodium (Porcine) (Heparin 5000 units/ml) 5,000 units EVERY 12 HOURS SUBQ 06/10/18 09:00 07/08/18 20:59 06/10/18 09:24 Lorazepam (Ativan 2mg/ml 1ml) 0.5 mg Q4H PRN IV For Anxiety 06/10/18 00:00 06/15/18 19:59 Morphine Sulfate (Morphine Sulfate) 1 mg Q4H PRN IVP For Pain 06/10/18 00:00 06/15/18 19:59 Ondansetron HCl (Zofran) 4 mg Q6H PRN IVP Nausea & Vomiting 06/10/18 02:00 07/08/18 19:59 Quetiapine Fumarate (SEROquel) 200 mg BEDTIME ORAL 06/10/18 21:00 07/10/18 20:59 Cristel Capone MD Jun 10, 2018 12:16
[2018-06-10 15:24] LABS: ALANINE AMINOTRANSFERASE 371 U/L (12-78); ALBUMIN 3.3 G/DL (3.4-5.0); ALKALINE PHOSPHATASE 60 U/L (46-116); ASPARTATE AMINO TRANSFERASE 1113 U/L (15-37); BILIRUBIN,DIRECT 0.1 MG/DL (0.0-0.3); BILIRUBIN,TOTAL 0.7 MG/DL (0.2-1.0)
--- NOTE | 2018-06-10 15:33 | Cardiology Report ---
APPROVED REPORT EKG Measurement Heart [id number] [id number] Sinus rhythm with sinus arrhythmia with short MT Otherwise normal ECG
[2018-06-10 16:00] VITALS: BP 142/87
[2018-06-10] MEDS ORDERED: D5W IV SCH (17:00)
[2018-06-10] MEDS ORDERED: ACETADOTE IV SCH (17:00)
[2018-06-10] MEDS: D5 1/2NS 1,000 ML IV SCH (19:15)
[2018-06-10 20:00] VITALS: BP 136/73
--- NOTE | 2018-06-10 20:25 | Internal Med Progress Note ---
Subjective Date of Service: Jun 10, 2018 Physician Name Sid Phan Attending Physician Dayday Boone MD Current Medications Medications (Trade) Dose Ordered Sig/Pierre Route PRN Reason Start Time Stop Time Status Last Admin Dose Admin Acetylcysteine 8000 mg/Dextrose 1,040 ml @ 65 mls/hr ONCE IV 06/10/18 17:00 06/11/18 09:00 06/10/18 17:31 Dextrose (Dextrose 50%) 25 ml Q30M PRN IV Hypoglycemia 06/09/18 23:30 07/08/18 19:59 Dextrose (Dextrose 50%) 50 ml Q30M PRN IV Hypoglycemia 06/09/18 23:30 07/08/18 19:59 Dextrose/Sodium Chloride 1,000 ml @ 50 mls/hr Q20H IV 06/09/18 23:15 07/08/18 19:48 Heparin Sodium (Porcine) (Heparin 5000 units/ml) 5,000 units EVERY 12 HOURS SUBQ 06/10/18 09:00 07/08/18 20:59 06/10/18 09:24 Lorazepam (Ativan 2mg/ml 1ml) 0.5 mg Q4H PRN IV For Anxiety 06/10/18 00:00 06/15/18 19:59 Morphine Sulfate (Morphine Sulfate) 1 mg Q4H PRN IVP For Pain 06/10/18 00:00 06/15/18 19:59 Ondansetron HCl (Zofran) 4 mg Q6H PRN IVP Nausea & Vomiting 06/10/18 02:00 07/08/18 19:59 Quetiapine Fumarate (SEROquel) 200 mg BEDTIME ORAL 06/10/18 21:00 07/10/18 20:59 Allergies: Coded Allergies: No Known Allergies (Unverified , 06/08/18) ROS Limited/Unobtainable: No Constitutional: Reports: no symptoms HEENT: Reports: no symptoms Cardiovascular: Reports: no symptoms Respiratory: Reports: no symptoms Gastrointestinal/Abdominal: Reports: no symptoms Genitourinary: Reports: no symptoms Neurologic/Psychiatric: Reports: no symptoms Objective Last Vital Signs Date Time Temp Pulse Resp B/P (MAP) Pulse Ox O2 Delivery O2 Flow Rate FiO2 06/10/18 16:00 98.2 61 19 142/87 (105) 100 98.2 61 06/10/18 09:00 Room Air Laboratory Tests Test 06/10/18 08:25 06/10/18 14:20 White Blood Count 4.1 K/UL (4.8-10.8) L Red Blood Count 5.63 M/UL (4.70-6.10) Hemoglobin 15.1 G/DL (14.2-18.0) # Hematocrit 45.4 % (42.0-52.0) # Mean Corpuscular Volume 81 FL (80-99) # Mean Corpuscular Hemoglobin 26.9 PG (27.0-31.0) L Mean Corpuscular Hemoglobin Concent 33.4 G/DL (32.0-36.0) Red Cell Distribution Width 11.6 % (11.6-14.8) Platelet Count 272 K/UL (150-450) Mean Platelet Volume 6.4 FL (6.5-10.1) L Neutrophils (%) (Auto) 40.4 % (45.0-75.0) L Lymphocytes (%) (Auto) 37.0 % (20.0-45.0) Monocytes (%) (Auto) 10.1 % (1.0-10.0) H Eosinophils (%) (Auto) 11.4 % (0.0-3.0) H Basophils (%) (Auto) 1.1 % (0.0-2.0) Prothrombin Time 12.0 SEC (9.30-11.50) H Prothromb Time International Ratio 1.1 (0.9-1.1) Activated Partial Thromboplast Time 28 SEC (23-33) Sodium Level 136 MMOL/L (136-145) Potassium Level 4.0 MMOL/L (3.5-5.1) Chloride Level 103 MMOL/L (98-107) Carbon Dioxide Level 27 MMOL/L (21-32) Anion Gap 6 mmol/L (5-15) Blood Urea Nitrogen 8 mg/dL (7-18) Creatinine 1.1 MG/DL (0.55-1.30) # Estimat Glomerular Filtration Rate > 60 mL/min (>60) Glucose Level 110 MG/DL (74-106) H Calcium Level 8.5 MG/DL (8.5-10.1) Phosphorus Level 2.7 MG/DL (2.5-4.9) Magnesium Level 1.4 MG/DL (1.8-2.4) L Total Bilirubin 0.8 MG/DL (0.2-1.0) 0.7 MG/DL (0.2-1.0) Aspartate Amino Transf (AST/SGOT) 1121 U/L (15-37) H 1113 U/L (15-37) H Alanine Aminotransferase (ALT/SGPT) 349 U/L (12-78) H 371 U/L (12-78) H Alkaline Phosphatase 51 U/L (46-116) 60 U/L (46-116) Total Protein 6.3 G/DL (6.4-8.2) L 6.4 G/DL (6.4-8.2) Albumin 3.1 G/DL (3.4-5.0) L 3.3 G/DL (3.4-5.0) L Globulin 3.2 g/dL Albumin/Globulin Ratio 1.0 (1.0-2.7) Direct Bilirubin 0.1 MG/DL (0.0-0.3) Intake and Output 06/09/18 06/10/18 19:00 07:00 Intake Total 705 ml 1209.7 ml Output Total 500 ml Balance 205 ml 1209.7 ml IV Total 705 ml 1209.7 ml Output Urine Total 500 ml # Voids 1 Objective PHYSICAL EXAMINATION: GENERAL: The patient is well-developed and well-nourished male, in no apparent distress. HEENT: Eyes, pupils are equal and responsive to light and accommodation. Extraocular movements are intact. NECK: Supple without lymphadenopathy. CHEST: Lungs are clear to auscultation bilaterally without wheezes or rales. CARDIOVASCULAR: Regular rhythm and rate. S1 and S2 are normal without murmurs, rubs, or gallops. ABDOMEN: Soft, nontender, and nondistended. Positive bowel sounds. No evidence of hepatosplenomegaly. Currently, no rebound or guarding noted. EXTREMITIES: Negative for clubbing, cyanosis, or edema. RECTAL/GENITAL: Refused. NEUROLOGIC: Cranial nerves II to XII are grossly intact without focal deficits. Motor strength is 5/5 bilaterally. Deep tendon reflexes are 2+ plantar. Assessment/Plan Problem List: (1) Elevated liver function tests Assessment & Plan: Worsening-see GI note. Continue acetylcysteine. (2) Suicide attempt by acetaminophen overdose Assessment & Plan: 5150 discontinued by psych-see mpte. (3) Overdose by acetaminophen (4) Schizoaffective disorder Assessment & Plan: see psych note Status: not improved Sid Phan MD Jun 10, 2018 20:25
[2018-06-11] VITALS: BP 103/63
[2018-06-11 04:00] VITALS: BP 110/69
[2018-06-11 08:00] VITALS: BP 127/74
[2018-06-11 08:08] LABS: EOSINOPHILS % (AUTO) 9.5 % (0.0-3.0); HEMATOCRIT 45.9 % (42.0-52.0); HEMOGLOBIN 15.7 G/DL (14.2-18.0); LYMPHOCYTES % (AUTO) 40.6 % (20.0-45.0); MEAN CORPUSCULAR VOLUME 80 FL (80-99); MONOCYTES % (AUTO) 12.6 % (1.0-10.0); NEUTROPHILS % (AUTO) 36.4 % (45.0-75.0); PLATELET COUNT 256 K/UL (150-450); RED BLOOD COUNT 5.71 M/UL (4.70-6.10); RED CELL DISTRIBUTION WIDTH 11.4 % (11.6-14.8); WHITE BLOOD COUNT 4.8 K/UL (4.8-10.8)
[2018-06-11 08:35] LABS: PHOSPHORUS 3.5 MG/DL (2.5-4.9)
[2018-06-11 08:36] LABS: ALANINE AMINOTRANSFERASE 358 U/L (12-78); ALBUMIN 3.1 G/DL (3.4-5.0); ALBUMIN/GLOBULIN RATIO 0.9 (1.0-2.7); ALKALINE PHOSPHATASE 50 U/L (46-116); ANION GAP 6 mmol/L (5-15); ASPARTATE AMINO TRANSFERASE 896 U/L (15-37); BILIRUBIN,TOTAL 0.5 MG/DL (0.2-1.0); BLOOD UREA NITROGEN 7 mg/dL (7-18); CALCIUM 8.8 MG/DL (8.5-10.1); CARBON DIOXIDE 27 MMOL/L (21-32); CHLORIDE 105 MMOL/L (98-107); CREATININE 0.9 MG/DL (0.55-1.30); SODIUM 138 MMOL/L (136-145)
[2018-06-11 08:38] LABS: ALANINE AMINOTRANSFERASE 360 U/L (12-78); ALBUMIN 3.2 G/DL (3.4-5.0); ALKALINE PHOSPHATASE 50 U/L (46-116); ASPARTATE AMINO TRANSFERASE 903 U/L (15-37); BILIRUBIN,DIRECT < 0.1 MG/DL (0.0-0.3); BILIRUBIN,TOTAL 0.4 MG/DL (0.2-1.0)
[2018-06-11] MEDS: D5 1/2NS 1,000 ML IV SCH (09:16)
[2018-06-11] MEDS: Heparin 5000 units/ml inj SUBQ SCH ×2 (09:17→21:36)
--- NOTE | 2018-06-11 11:51 | Pulmonology Progress Note ---
Assessment/Plan Problems: (1) Overdose by acetaminophen (2) Schizoaffective disorder (3) Depression Assessment/Plan PET team was called f/u liver enzymes GI and poison control following Subjective ROS Limited/Unobtainable: No Constitutional: Reports: no symptoms HEENT: Repors: no symptoms Allergies: Coded Allergies: No Known Allergies (Unverified , 06/08/18) Objective Last 24 Hour Vital Signs Date Time Temp Pulse Resp B/P (MAP) Pulse Ox O2 Delivery O2 Flow Rate FiO2 06/11/18 09:00 Room Air 06/11/18 08:00 97.6 81 18 127/74 (91) 99 97.6 06/11/18 04:00 97.8 78 18 110/69 (83) 99 97.8 78 06/11/18 00:00 97.5 80 17 103/63 (76) 97 97.5 80 06/10/18 21:00 Room Air 06/10/18 20:00 98.1 75 19 136/73 (94) 99 98.1 75 06/10/18 16:00 98.2 61 19 142/87 (105) 100 98.2 61 06/10/18 12:00 98.5 61 18 156/94 (114) 100 98.5 61 Intake and Output 06/10/18 06/11/18 19:00 07:00 Intake Total 985 ml 715 ml Balance 985 ml 715 ml Intake Oral 920 ml IV Total 65 ml 715 ml # Voids 7 2 General Appearance: WD/WN HEENT: normocephalic Respiratory/Chest: chest wall non-tender, lungs clear Cardiovascular: normal peripheral pulses, normal rate Abdomen: normal bowel sounds, soft, non tender Genitourinary: normal external genitalia Skin: no rash Laboratory Tests 06/10/18 14:20: Total Bilirubin 0.7, Direct Bilirubin 0.1, Aspartate Amino Transf (AST/SGOT) 1113H, Alanine Aminotransferase (ALT/SGPT) 371H, Alkaline Phosphatase 60, Total Protein 6.4, Albumin 3.3L 06/11/18 07:25: Total Bilirubin 0.4, Direct Bilirubin < 0.1, Aspartate Amino Transf (AST/SGOT) 903H, Alanine Aminotransferase (ALT/SGPT) 360H, Alkaline Phosphatase 50, Total Protein 6.8, Albumin 3.2L, White Blood Count 4.8, Red Blood Count 5.71, Hemoglobin 15.7, Hematocrit 45.9, Mean Corpuscular Volume 80, Mean Corpuscular Hemoglobin 27.5, Mean Corpuscular Hemoglobin Concent 34.2, Red Cell Distribution Width 11.4L, Platelet Count 256, Mean Platelet Volume 6.4L, Neutrophils (%) (Auto) 36.4L, Lymphocytes (%) (Auto) 40.6, Monocytes (%) (Auto) 12.6H, Eosinophils (%) (Auto) 9.5H, Basophils (%) (Auto) 1.0, Prothrombin Time 10.5, Prothromb Time International Ratio 1.0, Sodium Level 138, Potassium Level 4.0, Chloride Level 105, Carbon Dioxide Level 27, Anion Gap 6, Blood Urea Nitrogen 7, Creatinine 0.9, Estimat Glomerular Filtration Rate > 60, Glucose Level 112H, Calcium Level 8.8, Phosphorus Level 3.5, Magnesium Level 1.5L, Globulin 3.6, Albumin/Globulin Ratio 0.9L, Acetaminophen Level < 2L, Hepatitis A IgM Antibody [Pending], Hepatitis B Surface Antigen [Pending], Hepatitis B Core IgM Antibody [Pending], Hepatitis C Antibody [Pending], HIV (1&2) Antibody Rapid [Pending] Current Medications Medications (Trade) Dose Ordered Sig/Pierre Route PRN Reason Start Time Stop Time Status Last Admin Dose Admin Dextrose (Dextrose 50%) 25 ml Q30M PRN IV Hypoglycemia 06/09/18 23:30 07/08/18 19:59 Dextrose (Dextrose 50%) 50 ml Q30M PRN IV Hypoglycemia 06/09/18 23:30 07/08/18 19:59 Dextrose/Sodium Chloride 1,000 ml @ 50 mls/hr Q20H IV 06/09/18 23:15 07/08/18 19:48 06/11/18 09:16 Heparin Sodium (Porcine) (Heparin 5000 units/ml) 5,000 units EVERY 12 HOURS SUBQ 06/10/18 09:00 07/08/18 20:59 06/11/18 09:17 Lorazepam (Ativan 2mg/ml 1ml) 0.5 mg Q4H PRN IV For Anxiety 06/10/18 00:00 06/15/18 19:59 Morphine Sulfate (Morphine Sulfate) 1 mg Q4H PRN IVP For Pain 06/10/18 00:00 06/15/18 19:59 Ondansetron HCl (Zofran) 4 mg Q6H PRN IVP Nausea & Vomiting 06/10/18 02:00 07/08/18 19:59 Quetiapine Fumarate (SEROquel) 200 mg BEDTIME ORAL 06/10/18 21:00 07/10/18 20:59 06/10/18 20:54 Cristel Capone MD Jun 11, 2018 11:51
[2018-06-11 12:00] VITALS: BP 136/85
[2018-06-11] MEDS ORDERED: D5 1/2NS 1000ml IV ONE (15:14)
[2018-06-11 16:00] VITALS: BP 118/71
--- NOTE | 2018-06-11 17:37 | Internal Med Progress Note ---
Subjective Date of Service: Jun 11, 2018 Physician Name Sid Phan Attending Physician Dayday Boone MD Current Medications Medications (Trade) Dose Ordered Sig/Pierre Route PRN Reason Start Time Stop Time Status Last Admin Dose Admin Dextrose (Dextrose 50%) 25 ml Q30M PRN IV Hypoglycemia 06/09/18 23:30 07/08/18 19:59 Dextrose (Dextrose 50%) 50 ml Q30M PRN IV Hypoglycemia 06/09/18 23:30 07/08/18 19:59 Dextrose/Sodium Chloride 1,000 ml @ 50 mls/hr Q20H IV 06/09/18 23:15 07/08/18 19:48 06/11/18 09:16 Heparin Sodium (Porcine) (Heparin 5000 units/ml) 5,000 units EVERY 12 HOURS SUBQ 06/10/18 09:00 07/08/18 20:59 06/11/18 09:17 Lorazepam (Ativan 2mg/ml 1ml) 0.5 mg Q4H PRN IV For Anxiety 06/10/18 00:00 06/15/18 19:59 Morphine Sulfate (Morphine Sulfate) 1 mg Q4H PRN IVP For Pain 06/10/18 00:00 06/15/18 19:59 Ondansetron HCl (Zofran) 4 mg Q6H PRN IVP Nausea & Vomiting 06/10/18 02:00 07/08/18 19:59 Quetiapine Fumarate (SEROquel) 200 mg BEDTIME ORAL 06/10/18 21:00 07/10/18 20:59 06/10/18 20:54 Allergies: Coded Allergies: No Known Allergies (Unverified , 06/08/18) ROS Limited/Unobtainable: No Constitutional: Reports: no symptoms HEENT: Reports: no symptoms Cardiovascular: Reports: no symptoms Respiratory: Reports: no symptoms Gastrointestinal/Abdominal: Reports: no symptoms Genitourinary: Reports: no symptoms Neurologic/Psychiatric: Reports: no symptoms Subjective 28 YO M admitted with intentional acetaminophen overdose as suicide gesture. Cover for Betsy Boone Objective Last Vital Signs Date Time Temp Pulse Resp B/P (MAP) Pulse Ox O2 Delivery O2 Flow Rate FiO2 06/11/18 12:00 98.6 81 20 136/85 (102) 96 98.6 06/11/18 09:00 Room Air Laboratory Tests Test 06/11/18 07:25 White Blood Count 4.8 K/UL (4.8-10.8) Red Blood Count 5.71 M/UL (4.70-6.10) Hemoglobin 15.7 G/DL (14.2-18.0) Hematocrit 45.9 % (42.0-52.0) Mean Corpuscular Volume 80 FL (80-99) Mean Corpuscular Hemoglobin 27.5 PG (27.0-31.0) Mean Corpuscular Hemoglobin Concent 34.2 G/DL (32.0-36.0) Red Cell Distribution Width 11.4 % (11.6-14.8) L Platelet Count 256 K/UL (150-450) Mean Platelet Volume 6.4 FL (6.5-10.1) L Neutrophils (%) (Auto) 36.4 % (45.0-75.0) L Lymphocytes (%) (Auto) 40.6 % (20.0-45.0) Monocytes (%) (Auto) 12.6 % (1.0-10.0) H Eosinophils (%) (Auto) 9.5 % (0.0-3.0) H Basophils (%) (Auto) 1.0 % (0.0-2.0) Prothrombin Time 10.5 SEC (9.30-11.50) Prothromb Time International Ratio 1.0 (0.9-1.1) Sodium Level 138 MMOL/L (136-145) Potassium Level 4.0 MMOL/L (3.5-5.1) Chloride Level 105 MMOL/L (98-107) Carbon Dioxide Level 27 MMOL/L (21-32) Anion Gap 6 mmol/L (5-15) Blood Urea Nitrogen 7 mg/dL (7-18) Creatinine 0.9 MG/DL (0.55-1.30) Estimat Glomerular Filtration Rate > 60 mL/min (>60) Glucose Level 112 MG/DL (74-106) H Calcium Level 8.8 MG/DL (8.5-10.1) Phosphorus Level 3.5 MG/DL (2.5-4.9) Magnesium Level 1.5 MG/DL (1.8-2.4) L Total Bilirubin 0.4 MG/DL (0.2-1.0) Direct Bilirubin < 0.1 MG/DL (0.0-0.3) Aspartate Amino Transf (AST/SGOT) 903 U/L (15-37) H Alanine Aminotransferase (ALT/SGPT) 360 U/L (12-78) H Alkaline Phosphatase 50 U/L (46-116) Total Protein 6.8 G/DL (6.4-8.2) Albumin 3.2 G/DL (3.4-5.0) L Globulin 3.6 g/dL Albumin/Globulin Ratio 0.9 (1.0-2.7) L Acetaminophen Level < 2 MCG/ML (10-30) L Hepatitis A IgM Antibody Pending Hepatitis B Surface Antigen Pending Hepatitis B Core IgM Antibody Pending Hepatitis C Antibody Pending HIV (1&2) Antibody Rapid Negative (NEGATIVE) Intake and Output 06/10/18 06/11/18 19:00 07:00 Intake Total 985 ml 715 ml Balance 985 ml 715 ml Intake Oral 920 ml IV Total 65 ml 715 ml # Voids 7 2 Objective PHYSICAL EXAMINATION: GENERAL: The patient is well-developed and well-nourished male, in no apparent distress. HEENT: Eyes, pupils are equal and responsive to light and accommodation. Extraocular movements are intact. NECK: Supple without lymphadenopathy. CHEST: Lungs are clear to auscultation bilaterally without wheezes or rales. CARDIOVASCULAR: Regular rhythm and rate. S1 and S2 are normal without murmurs, rubs, or gallops. ABDOMEN: Soft, nontender, and nondistended. Positive bowel sounds. No evidence of hepatosplenomegaly. Currently, no rebound or guarding noted. EXTREMITIES: Negative for clubbing, cyanosis, or edema. RECTAL/GENITAL: Refused. NEUROLOGIC: Cranial nerves II to XII are grossly intact without focal deficits. Motor strength is 5/5 bilaterally. Deep tendon reflexes are 2+ plantar. Assessment/Plan Problem List: (1) Elevated liver function tests Assessment & Plan: improving-see GI note. Continue acetylcysteine. (2) Suicide attempt by acetaminophen overdose Assessment & Plan: 5150 discontinued by psych-see mpte. (3) Overdose by acetaminophen (4) Schizoaffective disorder Assessment & Plan: see psych note Status: progressing Sid Phan MD Jun 11, 2018 17:37
[2018-06-11 20:00] VITALS: BP 126/76
--- NOTE | 2018-06-11 23:46 | General Progress Note ---
Assessment/Plan Status: stable, progressing Assessment/Plan 28-year-old male who presents with chief complaint of abdominal pain and stated that he was depressed the pt was started on seroquel which he stopped taking outside of the hospital -increase Seroquel -Prozac 20mg qam -the pt is not at imminent dts Subjective Date patient seen: Jun 10, 2018 Neurologic/Psychiatric: Reports: anxiety, depressed, emotional problems Allergies: Coded Allergies: No Known Allergies (Unverified , 06/08/18) Subjective the pt stated that he is not suicidal not homicidal and he is doing well. Objective Last 24 Hour Vital Signs Date Time Temp Pulse Resp B/P (MAP) Pulse Ox O2 Delivery O2 Flow Rate FiO2 06/11/18 20:00 98.5 74 20 126/76 (93) 98 98.5 06/11/18 16:00 98.5 66 20 118/71 (87) 96 98.5 06/11/18 12:00 98.6 81 20 136/85 (102) 96 98.6 06/11/18 09:00 Room Air 06/11/18 08:00 97.6 81 18 127/74 (91) 99 97.6 06/11/18 04:00 97.8 78 18 110/69 (83) 99 97.8 78 06/11/18 00:00 97.5 80 17 103/63 (76) 97 97.5 80 Intake and Output 06/10/18 06/11/18 19:00 07:00 Intake Total 985 ml 780 ml Balance 985 ml 780 ml Intake Oral 920 ml IV Total 65 ml 780 ml # Voids 7 2 Laboratory Tests 06/11/18 07:25: White Blood Count 4.8, Red Blood Count 5.71, Hemoglobin 15.7, Hematocrit 45.9, Mean Corpuscular Volume 80, Mean Corpuscular Hemoglobin 27.5, Mean Corpuscular Hemoglobin Concent 34.2, Red Cell Distribution Width 11.4L, Platelet Count 256, Mean Platelet Volume 6.4L, Neutrophils (%) (Auto) 36.4L, Lymphocytes (%) (Auto) 40.6, Monocytes (%) (Auto) 12.6H, Eosinophils (%) (Auto) 9.5H, Basophils (%) ( Auto) 1.0, Prothrombin Time 10.5, Prothromb Time International Ratio 1.0, Sodium Level 138, Potassium Level 4.0, Chloride Level 105, Carbon Dioxide Level 27, Anion Gap 6, Blood Urea Nitrogen 7, Creatinine 0.9, Estimat Glomerular Filtration Rate > 60, Glucose Level 112H, Calcium Level 8.8, Phosphorus Level 3.5, Magnesium Level 1.5L, Total Bilirubin 0.4, Direct Bilirubin < 0.1, Aspartate Amino Transf (AST/SGOT) 903H, Alanine Aminotransferase (ALT/SGPT) 360H , Alkaline Phosphatase 50, Total Protein 6.8, Albumin 3.2L, Globulin 3.6, Albumin/Globulin Ratio 0.9L, Acetaminophen Level < 2L, Hepatitis A IgM Antibody [Pending], Hepatitis B Surface Antigen [Pending], Hepatitis B Core IgM Antibody [Pending], Hepatitis C Antibody [Pending], HIV (1&2) Antibody Rapid Negative Height (Feet): 6 Height (Inches): 2.00 Weight (Pounds): 180 General Appearance: no apparent distress, alert Neurologic: oriented x 3, responsive, normal mood/affect Lymphatic: normal anterior cervical (L), normal anterior cervical (R), normal posterior cervical (L), normal posterior cervical (R), normal submandibular (L) , normal submandibular (R), normal supraclavicular (L), normal supraclavicular ( R), normal axillary (L), normal axillary (R), normal inguinal (L), normal inguinal (R), normal other Bijal Ortiz MD Jun 11, 2018 23:46
[2018-06-12] VITALS: BP 130/60
[2018-06-12 04:00] VITALS: BP 121/69
[2018-06-12 07:24] LABS: BASOPHILS % (AUTO) 1.5 % (0.0-2.0); EOSINOPHILS % (AUTO) 13.4 % (0.0-3.0); HEMATOCRIT 44.2 % (42.0-52.0); HEMOGLOBIN 15.1 G/DL (14.2-18.0); LYMPHOCYTES % (AUTO) 50.5 % (20.0-45.0); MEAN CORPUSCULAR VOLUME 80 FL (80-99); MONOCYTES % (AUTO) 11.1 % (1.0-10.0); NEUTROPHILS % (AUTO) 23.5 % (45.0-75.0); PLATELET COUNT 234 K/UL (150-450); RED BLOOD COUNT 5.52 M/UL (4.70-6.10); RED CELL DISTRIBUTION WIDTH 11.6 % (11.6-14.8)
[2018-06-12 07:59] LABS: ALANINE AMINOTRANSFERASE 339 U/L (12-78); ALBUMIN 3.1 G/DL (3.4-5.0); ALBUMIN/GLOBULIN RATIO 0.9 (1.0-2.7); ALKALINE PHOSPHATASE 49 U/L (46-116); ANION GAP 7 mmol/L (5-15); ASPARTATE AMINO TRANSFERASE 716 U/L (15-37); BILIRUBIN,TOTAL 0.4 MG/DL (0.2-1.0); BLOOD UREA NITROGEN 9 mg/dL (7-18); CALCIUM 8.9 MG/DL (8.5-10.1); CARBON DIOXIDE 27 MMOL/L (21-32); CHLORIDE 104 MMOL/L (98-107); POTASSIUM 3.9 MMOL/L (3.5-5.1); SODIUM 138 MMOL/L (136-145)
[2018-06-12 08:00] VITALS: BP 106/61
[2018-06-12] MEDS: Heparin 5000 units/ml inj SUBQ SCH (08:28)
[2018-06-12] MEDS: D5 1/2NS 1,000 ML IV SCH (11:53)
[2018-06-12 12:00] VITALS: BP 113/69
--- NOTE | 2018-06-12 15:20 | Internal Med Progress Note ---
Subjective Date of Service: Jun 12, 2018 Physician Name EmilieSid Attending Physician Dayday Boone MD Current Medications Medications (Trade) Dose Ordered Sig/Pierre Route PRN Reason Start Time Stop Time Status Last Admin Dose Admin Dextrose (Dextrose 50%) 25 ml Q30M PRN IV Hypoglycemia 06/09/18 23:30 07/08/18 19:59 Dextrose (Dextrose 50%) 50 ml Q30M PRN IV Hypoglycemia 06/09/18 23:30 07/08/18 19:59 Dextrose/Sodium Chloride 1,000 ml @ 50 mls/hr Q20H IV 06/09/18 23:15 07/08/18 19:48 06/12/18 11:53 Heparin Sodium (Porcine) (Heparin 5000 units/ml) 5,000 units EVERY 12 HOURS SUBQ 06/10/18 09:00 07/08/18 20:59 06/12/18 08:28 Lorazepam (Ativan 2mg/ml 1ml) 0.5 mg Q4H PRN IV For Anxiety 06/10/18 00:00 06/15/18 19:59 Morphine Sulfate (Morphine Sulfate) 1 mg Q4H PRN IVP For Pain 06/10/18 00:00 06/15/18 19:59 Ondansetron HCl (Zofran) 4 mg Q6H PRN IVP Nausea & Vomiting 06/10/18 02:00 07/08/18 19:59 Quetiapine Fumarate (SEROquel) 200 mg BEDTIME ORAL 06/10/18 21:00 07/10/18 20:59 06/11/18 21:33 Allergies: Coded Allergies: No Known Allergies (Unverified , 06/08/18) ROS Limited/Unobtainable: No Constitutional: Reports: no symptoms HEENT: Reports: no symptoms Cardiovascular: Reports: no symptoms Respiratory: Reports: no symptoms Gastrointestinal/Abdominal: Reports: no symptoms Genitourinary: Reports: no symptoms Neurologic/Psychiatric: Reports: no symptoms Subjective 28 YO M admitted with intentional acetaminophen overdose as suicide gesture. Cover for Betsy Boone Objective Last Vital Signs Date Time Temp Pulse Resp B/P (MAP) Pulse Ox O2 Delivery O2 Flow Rate FiO2 06/12/18 12:00 97.5 67 20 113/69 (84) 99 97.5 06/12/18 08:17 Room Air Laboratory Tests Test 06/12/18 06:10 White Blood Count 4.0 K/UL (4.8-10.8) L Red Blood Count 5.52 M/UL (4.70-6.10) Hemoglobin 15.1 G/DL (14.2-18.0) Hematocrit 44.2 % (42.0-52.0) Mean Corpuscular Volume 80 FL (80-99) Mean Corpuscular Hemoglobin 27.4 PG (27.0-31.0) Mean Corpuscular Hemoglobin Concent 34.2 G/DL (32.0-36.0) Red Cell Distribution Width 11.6 % (11.6-14.8) Platelet Count 234 K/UL (150-450) Mean Platelet Volume 6.6 FL (6.5-10.1) Neutrophils (%) (Auto) 23.5 % (45.0-75.0) L Lymphocytes (%) (Auto) 50.5 % (20.0-45.0) H Monocytes (%) (Auto) 11.1 % (1.0-10.0) H Eosinophils (%) (Auto) 13.4 % (0.0-3.0) H Basophils (%) (Auto) 1.5 % (0.0-2.0) Sodium Level 138 MMOL/L (136-145) Potassium Level 3.9 MMOL/L (3.5-5.1) Chloride Level 104 MMOL/L (98-107) Carbon Dioxide Level 27 MMOL/L (21-32) Anion Gap 7 mmol/L (5-15) Blood Urea Nitrogen 9 mg/dL (7-18) Creatinine 1.0 MG/DL (0.55-1.30) Estimat Glomerular Filtration Rate > 60 mL/min (>60) Glucose Level 94 MG/DL (74-106) Calcium Level 8.9 MG/DL (8.5-10.1) Total Bilirubin 0.4 MG/DL (0.2-1.0) Aspartate Amino Transf (AST/SGOT) 716 U/L (15-37) H Alanine Aminotransferase (ALT/SGPT) 339 U/L (12-78) H Alkaline Phosphatase 49 U/L (46-116) Total Protein 6.6 G/DL (6.4-8.2) Albumin 3.1 G/DL (3.4-5.0) L Globulin 3.5 g/dL Albumin/Globulin Ratio 0.9 (1.0-2.7) L Intake and Output 06/11/18 06/12/18 19:00 07:00 Intake Total 445 ml 1170 ml Balance 445 ml 1170 ml Intake Oral 520 ml IV Total 445 ml 650 ml # Voids 4 Objective PHYSICAL EXAMINATION: GENERAL: The patient is well-developed and well-nourished male, in no apparent distress. HEENT: Eyes, pupils are equal and responsive to light and accommodation. Extraocular movements are intact. NECK: Supple without lymphadenopathy. CHEST: Lungs are clear to auscultation bilaterally without wheezes or rales. CARDIOVASCULAR: Regular rhythm and rate. S1 and S2 are normal without murmurs, rubs, or gallops. ABDOMEN: Soft, nontender, and nondistended. Positive bowel sounds. No evidence of hepatosplenomegaly. Currently, no rebound or guarding noted. EXTREMITIES: Negative for clubbing, cyanosis, or edema. RECTAL/GENITAL: Refused. NEUROLOGIC: Cranial nerves II to XII are grossly intact without focal deficits. Motor strength is 5/5 bilaterally. Deep tendon reflexes are 2+ plantar. Assessment/Plan Problem List: (1) Elevated liver function tests Assessment & Plan: improving-see GI note. Continue acetylcysteine. (2) Suicide attempt by acetaminophen overdose Assessment & Plan: 5150 discontinued by psych-see mpte. (3) Overdose by acetaminophen (4) Schizoaffective disorder Assessment & Plan: see psych note Status: progressing Sid Phan MD Jun 12, 2018 15:20
[2018-06-12 16:00] VITALS: BP 113/64
[2018-06-12 16:53] LABS: ALANINE AMINOTRANSFERASE 345 U/L (12-78); ALBUMIN 3.2 G/DL (3.4-5.0); ALBUMIN/GLOBULIN RATIO 0.9 (1.0-2.7); ALKALINE PHOSPHATASE 69 U/L (46-116); ANION GAP 6 mmol/L (5-15); ASPARTATE AMINO TRANSFERASE 688 U/L (15-37); BILIRUBIN,TOTAL 0.3 MG/DL (0.2-1.0); BLOOD UREA NITROGEN 11 mg/dL (7-18); CALCIUM 9.2 MG/DL (8.5-10.1); CARBON DIOXIDE 29 MMOL/L (21-32); CHLORIDE 103 MMOL/L (98-107); SODIUM 138 MMOL/L (136-145)
--- NOTE | 2018-06-15 11:50 | Discharge Summary ---
Discharge Summary Discharge Summary _ DATE OF ADMISSION: 06/08/2018 DATE OF DISCHARGE: 06/12/2018. Patient signed AGAINST MEDICAL ADVICE REASON FOR ADMISSION: 28 years old male with past medical history of schizophrenia and depression, presented to emergency department complaining of abdominal pain. Patient stopped taking his psychiatric medications. Patient reported feeling depressed and wanted to kill himself. He took about 60 pills of Tylenol Extra Strength last night and had 1 episode of vomiting. He complained of abdominal pain, but denied chest pain , shortness of breath and fevers. Upon evaluation vital signs were stable. Tylenol level- 33. Urine toxicology screen was positive for amphetamine, cocaine, and marijuana. Laboratory workup revealed no leukocytosis , stable hemoglobin and hematocrit. Stable renal parameters and electrolytes. AST 394. ALT 88.. Coagulation profile stable. EKG revealed normal sinus rhythm, no acute ischemic changes. Case was discussed with [facility] Control [facility]. Patient was started on Mucomyst. Patient was admitted with diagnoses acute Tylenol overdose ,suicidal attempt , transaminitis, depression. CONSULTANTS: pulmonary Dr. Capone ID specialist GI specialist Dr. Horner psychiatrist [facility]: Patient admitted to direct observational unit. Patient started on IV fluids. Patient was followed up with LFT and Tylenol levels. Patient was continued on Mucomyst. GI and psychiatric evaluations were requested. DVT prophylaxis provided. LFT initially were trending up, but afterwords started slowly trending down. Prior to signing against medical advise AST 688, ALT 345. Acetaminophen level down . Hepatitis panel was negative. HIV status was negative. GI specialist closely followed. Patient was started on diet and advanced as tolerated. Symptomatic treatment provided with antiemetics and anxiolytic as needed. Electrolytes were closely monitored and corrected as needed. Patient was counseled on abstinence from street drugs. Per psychiatrist , patient was restarted on Seroquel which he stopped taking outside of the hospital. Seroquel dose subsequently increased. Patient also started on Prozac. Per psychiatrist patient was not an imminent danger at that time to himself. Patient decided to sign against medical advice. The risks and consequences of signing AGAINST MEDICAL ADVICE were discussed with patient in detail. Patient verbalized understanding, nevertheless signed AMA form and left. FINAL DIAGNOSES: Suicidal attempt by acetaminophen overdose Overdose by acetaminophen Transaminitis Schizoaffective disorder Drug abuse ( cocaine, amphetamine, marijuana) Depression I have been assigned to dictate discharge summary for this account. I was not involved in the patient's management. Karolyn Cotter NP Jun 15, 2018 11:50
== END 2018-06-12 18:55 | disposition left against medical advice (07) | DRG 817 ==
LOC: EDBD 14:53 → EDBEDREQ 15:14 → EMR 15:42 → EDBEDREQ 16:33 → 2W 16:36 → EDBEDREQ 17:19 → 3E 06-09 23:07
DX: T39.1X2A Poisoning by 4-Aminophenol derivatives, intentional self-harm, initial encounter (principal); F20.9 Schizophrenia, unspecified; R10.9 Unspecified abdominal pain; Y92.009 Unspecified place in unspecified non-institutional (private) residence as the place of occurrence of the external cause; F32.9 Major depressive disorder, single episode, unspecified; R79.89 Other specified abnormal findings of blood chemistry; F25.9 Schizoaffective disorder, unspecified; R74.0 Nonspecific elevation of levels of transaminase and lactic acid dehydrogenase [LDH]; F14.10 Cocaine abuse, uncomplicated; F15.10 Other stimulant abuse, uncomplicated; F12.10 Cannabis abuse, uncomplicated
CPT/HCPCS: 36415; 80053; 80076; 80307; 80329; 83735; 84100; 85025; 85610; 85730; 86703; 86705; 86709; 86803; 87340; 93005; 96365; 96375; 99285; J2405